=== PATIENT | male | born 1960 | race American Indian/Alaskan Native ===

== ENCOUNTER 2018-04-04 01:20 | Emergency (ER) | payer OTHER ==
--- NOTE | 2018-04-04 02:13 | XRay Report ---
FINAL REPORT PROCEDURE: XR CHEST 1V AP TECHNIQUE: Chest radiograph anteroposterior view. CPT 71745 HISTORY: Central Line Placement COMPARISON: No prior studies are available for comparison. FINDINGS: Heart: The heart is enlarged Mediastinum/Vessels: Normal. Lungs/Pleural space: There are right perihilar infiltrates. There are small pleural effusions. There is no pneumothorax.. Bony thorax: No acute osseous abnormality. Life support devices: Endotracheal tube is in the mid trachea. There is a left-sided central venous c atheter in the left internal jugular vein.. IMPRESSION: The heart is enlarged There are right perihilar infiltrates. There are small pleural effusions. There is no pneumothorax.. Endotracheal tube is in the mid trachea. There is a left-sided central venous catheter in the left in ternal jugular vein.. .
[2018-04-04] MEDS ORDERED: SUBLIMAZE IV PRN ×2 (02:16→02:38)
[2018-04-04] MEDS ORDERED: NACL 0.9% 500 ML IV PRN (02:16)
[2018-04-04] MEDS ORDERED: ARTIFICIAL TEARS OPHTH OINT OU PRN (02:16)
[2018-04-04] MEDS ORDERED: VASELINE LIP THERAPY TP PRN (02:16)
[2018-04-04] MEDS ORDERED: NACL 0.9% 1000 ML 1,000 ML IV ONE ×2 (02:19→03:27)
[2018-04-04] MEDS ORDERED: ZOSYN/NS 4.5GM/100ML 4.5 GM/100 ML VIAL IV ONE (02:21)
[2018-04-04] MEDS ORDERED: fentaNYL DRIP Premix 2,000 MCG/100 ML BAG IV SCH ×2 (03:00)
[2018-04-04] MEDS ORDERED: LEVOPHED DRIP 4 MG/NS 250 ML 4 MG/250 ML BAG IV SCH (03:00)
[2018-04-04 03:06] LABS: Hematocrit 44.5 % (35.5-45.6); Hemoglobin 14.4 gm/dl (11.8-15.2); Mean Corpuscular HGB Conc 33 % (32-34); Mean Corpuscular Volume 85 fl (84-94); Platelet Count 172 K/mm3 (140-440); Red Blood Count 5.26 M/mm3 (3.65-5.03)
[2018-04-04 03:15] LABS: INR 1.04 (0.87-1.13); Partial Thromboplastin Time 24.6 Sec. (24.2-36.6)
--- NOTE | 2018-04-04 03:22 | Emergency Department Report ---
ED General Adult HPI - General Chief complaint: Cardiac Arrest/CPR Stated complaint: CARDIAC ARREST Time Seen by Provider: 04/04/18 02:11 Source: EMS (ems notes not available at time of chart dictation. Verbal report received from EMS) Mode of arrival: Stretcher Limitations: No Limitations - History of Present Illness Initial comments: This is a 57-year-old gentleman not known to this provider previously. The patient is brought to the hospital by EMS as an out of hospital cardiac arrest. As per verbal report from EMS, the patient has a history of obesity, and diabetes. The patient apparently had a cardiac arrest during sexual activity. This specific details are not currently known. EMS estimates patient was pulseless initially for 15 minutes, and then regained pulses, for around 15 minutes. In the field, the patient was intubated, and started on an epinephrine drip. Upon arrival to the ER, patient is pulseless, pupils pinpoint and do not react to light, and he is receiving aggressive chest compressions. Patient received standard ACLS interventions and therapies. Around 5-7 minutes into his emergency room resuscitation, patient regained pulses. The patient is still, comatose. After pulses were obtained, video laryngoscopy performed with a Rancho 4 curved blade, which confirmed appropriate endotracheal tube placement. Hemodynamically unstable, dependent on epinephrine, and therefore an emergent right-sided femoral nonsterile crashed central line is attempted using ultrasound guidance. The femoral vein was cannulated, however, the line could not be passed secondary to significant adipose tissue and the patient's thighs. Thus, the right femoral attempt was aborted, and direct pressure was held in the right femoral region. The patient is now receiving epinephrine through a peripheral line, and has an elevated blood pressure. Therefore, the patient is emergently, and administratively consented by myself for emergent sterile central line, for administration of vasopressor medications. A left-sided central line was placed into the left internal jugular vein, ultrasound guidance, with one attempt, with no obvious complications. The patient tolerated this procedure well. Postprocedure, bedside ultrasonography confirmed placement of the central line tube in the venous lumen, and x-ray also confirmed appropriate placement without pneumothorax. X-ray did confirm no pneumothorax, and a small infiltrate was noted. This is most likely an aspiration pneumonia, pneumonitis. Patiently ventilated on a lung protective strategy, at 6-8 cc per kilogram of ideal body weight. This hospital does not have a hypothermia protocol or mechanism in place. Given leukocytosis, hemodynamic instability, patient will be covered empirically with Zosyn, although I doubt that the patient is acutely bacteremic. He modynamic instability, leukocytosis likely secondary to recent cardiac arrest. Screening laboratory studies have been requested. Noncontrast CT scan of the brain has been ordered and results are pending. EKG reviewed and is nonspecific. Discussed with cardiology, Dr. Sparrow, and their group will follow in consultation. Currently, EKG and clinical presentation does not support emergent cardiac catheterization. We are currently waiting for family, friends to present for additional information. A page has been placed out to the critical care physician to arrange placement into the intensive care unit. -: Sudden Quality: other Consistency: other Improves with: other Worsens with: other Associated Symptoms: other - Related Data Allergies Allergy/AdvReac Type Severity Reaction Status Date / Time No Known Allergies Allergy Verified 04/04/18 02:24 ED Review of Systems ROS: Stated complaint: CARDIAC ARREST Other details as noted in HPI Comment: Unobtainable due to pts medical conditions ED Past Medical Hx - Social History Smoking Status: Unknown if ever smoked ED Physical Exam - General Limitations: No Limitations, Altered Mental Status General appearance: obtunded - Head Head exam: Present: atraumatic, normocephalic - Eye Eye exam: Absent: normal appearance (pupils fixed, pinpoint, do not react to light) - ENT ENT exam: Present: normal orophraynx, mucous membranes moist, normal external ear exam, other (endotracheal tube noted in the oropharynx) - Neck Neck exam: Present: normal inspection. Absent: tenderness, meningismus - Respiratory Respiratory exam: Present: rhonchi. Absent: wheezes - Cardiovascular Cardiovascular Exam: Present: regular rate, normal rhythm, normal heart sounds. Absent: bradycardia, tachycardia, irregular rhythm, systolic murmur, diastolic murmur, rubs, gallop - GI/Abdominal GI/Abdominal exam: Present: soft. Absent: distended, tenderness, guarding, rebound, rigid, pulsatile mass - Rectal Rectal exam: Present: normal inspection, normal rectal tone, heme (-) stool. Absent: bloody stool - exam: Present: normal inspection External exam: Present: normal external exam - Extremities Exam Extremities exam: Present: normal inspection, other (2+ pulses noted in the bilateral upper, lower extremities. Compartments soft. No long bony tenderness. The pelvis is stable.). Absent: pedal edema, calf tenderness - Back Exam Back exam: Present: normal inspection. Absent: tenderness, CVA tenderness (R), paraspinal tenderness, vertebral tenderness - Neurological Exam Neurological exam: Present: altered, other (intubated, GCS of 3) - Psychiatric Psychiatric exam: Present: normal affect, normal mood - Skin Skin exam: Present: warm, dry, intact, normal color. Absent: rash ED Course Vital Signs 04/04/18 04/04/18 04/04/18 01:24 01:30 01:40 Temperature Pulse Rate 143 H 119 H 83 Respiratory 19 16 Rate Respiratory Rate [Post- Procedure] Blood Pressure Blood Pressure [Post-Procedure ] Blood Pressure 226/53 [Right] O2 Sat by Pulse 99 98 Oximetry O2 Sat by Pulse Oximetry [Post -Procedure] 04/04/18 04/04/18 04/04/18 01:45 01:51 01:53 Temperature Pulse Rate 79 66 Respiratory Rate Respiratory 18 Rate [Post- Procedure] Blood Pressure 144/66 Blood Pressure 140/56 [Post-Procedure ] Blood Pressure 140/56 [Right] O2 Sat by Pulse 98 98 Oximetry O2 Sat by Pulse 98 Oximetry [Post -Procedure] 04/04/18 04/04/18 04/04/18 02:00 02:15 02:30 Temperature Pulse Rate 60 Respiratory 18 Rate Respiratory Rate [Post- Procedure] Blood Pressure 140/56 100/51 104/55 Blood Pressure [Post-Procedure ] Blood Pressure [Right] O2 Sat by Pulse 98 99 97 Oximetry O2 Sat by Pulse Oximetry [Post -Procedure] 04/04/18 04/04/18 04/04/18 02:46 03:00 03:15 Temperature 98.8 F Pulse Rate 58 L 43 L 77 Respiratory 18 18 18 Rate Respiratory Rate [Post- Procedure] Blood Pressure 104/55 95/53 169/93 Blood Pressure [Post-Procedure ] Blood Pressure [Right] O2 Sat by Pulse 99 96 99 Oximetry O2 Sat by Pulse Oximetry [Post -Procedure] 04/04/18 04/04/18 03:21 03:31 Temperature Pulse Rate 61 Respiratory 20 Rate Respiratory Rate [Post- Procedure] Blood Pressure 141/83 Blood Pressure [Post-Procedure ] Blood Pressure [Right] O2 Sat by Pulse 97 95 Oximetry O2 Sat by Pulse Oximetry [Post -Procedure] - Reevaluation(s) Reevaluation #1: 04/04/18 03:28 Discussed with critical care physician, Dr. Owusu. Agrees with management plan. Discussed with family. Reevaluation #2: 04/04/18 04:54 CT scan of the brain shows hematoma in the left hemisphere of the cerebellum, 2.7 x 4.4 cm. Likely hemorrhagic transformation of infarct, or a vascular malformation. Subarachnoid hemorrhage is also noted. Blood was noted in the fourth ventricle, third ventricle. Cerebellar tonsils not defined. Possibility of cerebellar tonsillar herniation is considered. May be secondary ischemic infarct in the tono. Patient's had a bed will be elevated. He will be loaded with Keppra. He will be loaded with hypertonic saline. We'll hyperventilates to a goal PaCO2 of 30- 35 mmHg. This hospital does not have a hypothermia protocol, does not have neurosurgery, neurology, or neurology critical care. The patient has an emergent medical condition at this time, which cannot be definitively managed at this hospital because of lack of the aforementioned resources. Case is presented to neurology critical care, and neurosurgery at [facility], Shena Ramirez ( Shaquille, unsure of spelling) and Dr Oquendo, who has accepted the patient as a transfer. Elevated troponin reviewed and appreciated, likely secondary to cardiac arrest, and acute intracranial hemorrhage. Not a candidate for anticoagulation, thr ombolysis or aspirin at this time because of presence of intracranial bleed. - Procedure Description Procedures done: Video laryngoscopy performed with a curved Rancho blade, confirms placement of 8.0 endotracheal tube, placed by EMS personnel. - Central Line Placement Left IJ Consent Obtained: emergent situation Time Out Performed: Yes Patient Placed on Monitor/Pulse Ox: Yes Prep: mask, gown Central Line Prep: Povidone-Iodine 1%, Chlorhexidine scrub, sterile drapes applied Ultrasound Used for Placement: Yes Central Line Lumen Inserted: triple Bloods Obtained for Lab: No Central Line Position: good blood return, all ports aspirated, flus, sutured in place with 2-0 Dressing Applied: Tegaderm Post Procedure X-Ray: tip of catheter in good p Patient Tolerated Procedure: well Complications: none ED Medical Decision Making - Lab Data Result diagrams: 04/04/18 02:35 02/15/19 02:35 Vital Signs 04/04/18 04/04/18 04/04/18 01:40 01:45 01:53 Pulse Rate 83 79 66 Blood Pressure 144/66 Blood Pressure 226/53 140/56 [Right] O2 Sat by Pulse 98 100 98 Oximetry 04/04/18 03:21 Pulse Rate Blood Pressure Blood Pressure [Right] O2 Sat by Pulse 97 Oximetry Lab Results 04/04/18 04/04/18 04/04/18 Range/Units 02:35 02:35 02:35 WBC 17.2 H (4.5-11.0) K/mm3 RBC 5.26 H (3.65-5.03) M/mm3 Hgb 14.4 (11.8-15.2) gm/dl Hct 44.5 (35.5-45.6) % MCV 85 (84-94) fl MCH 28 (28-32) pg MCHC 33 (32-34) % RDW 16.0 H (13.2-15.2) % Plt Count 172 (140-440) K/mm3 PT 14.2 (12.2-14.9) Sec. INR 1.04 (0.87-1.13) APTT 24.6 (24.2-36.6) Sec. POC ABG pH (7.35-7.45) POC ABG pCO2 (35-45) POC ABG pO2 (80-105) POC ABG HCO3 POC ABG Total CO2 POC ABG O2 Sat POC ABG Base Excess FiO2 % Blood Type O POSITIVE 04/04/18 Range/Units 03:14 WBC (4.5-11.0) K/mm3 RBC (3.65-5.03) M/mm3 Hgb (11.8-15.2) gm/dl Hct (35.5-45.6) % MCV (84-94) fl MCH (28-32) pg MCHC (32-34) % RDW (13.2-15.2) % Plt Count (140-440) K/mm3 PT (12.2-14.9) Sec. INR (0.87-1.13) APTT (24.2-36.6) Sec. POC ABG pH 7.299 L (7.35-7.45) POC ABG pCO2 63.1 H (35-45) POC ABG pO2 443 H (80-105) POC ABG HCO3 31.0 POC ABG Total CO2 33 POC ABG O2 Sat 100 POC ABG Base Excess 5 FiO2 100 % Blood Type - EKG Data -: EKG Interpreted by Ri - EKG Data When compared to previous EKG there are: previous EKG unavailable 04/04/18 03:25 Cardiac, 47 bpm, borderline leftward axis, QTC within normal limits, atrial enlargement, motion artifact, nonspecific ST abnormality, borderline prolonged TX interval, abnormal EKG, not consistent with ST elevation myocardial infarction. - Radiology Data Radiology results: report reviewed, image reviewed Print Report Referring Physician: JAYMIE LEIVA Patient Name: TANGELA INFANTE Date of : 1960 Sex: Male Report Date: 2018-04-04 Report Status: Finalized Findings [facility] [address] [place] [address] XRay Report Signed Patient: TANGELA INFANTE MR#: [id number] : 1960 Acct:[id number] Age/Sex: 57 / M ADM Date: 04/04/18 Loc: ED Attending Dr: Ordering Physician: JAYMIE LEIVA MD Date of Service: 04/04/18 Procedure(s): XR chest 1V ap Accession Number(s): [id number] cc: JAYMIE LEIVA MD Fluoro Time In Minutes: FINAL REPORT PROCEDURE: XR CHEST 1V AP TECHNIQUE: Chest radiograph anteroposterior view. CPT 61871 HISTORY: Central Line Placement COMPARISON: No prior studies are available for comparison. FINDINGS: Heart: The heart is enlarged Mediastinum/Vessels: Normal. Lungs/Pleural space: There are right perihilar infiltrates. There are small pleural effusions. There is no pneumothorax.. Bony thorax: No acute osseous abnormality. Life support devices: Endotracheal tube is in the mid trachea. There is a left-sided central venous catheter in the left internal jugular vein.. IMPRESSION: The heart is enlarged There are right perihilar infiltrates. There are small pleural effusions. There is no pneumothorax.. Endotracheal tube is in the mid trachea. There is a left-sided central venous catheter in the left internal jugular vein.. . Transcribed By: CO Dictated By: JEFFY MCGUIRE MD Electronically Authenticated By: JEFFY MCGUIRE MD Signed Date/Time: 04/04/18 0213 Critical Care Time: Yes Critical care time in (mins) excluding proc time.: 120 Critical care attestation.: If time is entered above; I have spent that time in minutes in the direct care of this critically ill patient, excluding procedure time. ED Disposition Clinical Impression: Intracranial hemorrhage, Cardiac arrest, Acute renal insufficiency Disposition: DC/TX-02 [id number]-TRM GEN HOSP IP Is pt being admited?: No Does the pt Need Aspirin: No Condition: Critical Referrals: ELI GIBBS MD [Primary Care Provider] - 3-5 Days
[2018-04-04 03:25] LABS: Albumin 3.5 g/dL (3.9-5); Calcium 8.6 mg/dL (8.4-10.2)
[2018-04-04] MEDS ORDERED: KEPPRA 1,000 MG/NS 0.75% 100ML 1,000 MG/100 ML BAG IV ONE (04:40)
[2018-04-04] MEDS ORDERED: NACL 3% 300 ML IV ONE (04:45)
[2018-04-04] MEDS ORDERED: OSMITROL 20% IV ONE (04:45)
[2018-04-04 04:51] LABS: Chol/HDL Ratio 2.61 %
--- NOTE | 2018-04-04 04:51 | Cat Scan Report ---
FINAL REPORT PROCEDURE: CT HEAD/BRAIN WO CON TECHNIQUE: Computerized tomography of the head was performed without contrast material. HISTORY: ams cardiac arrest COMPARISON: No prior studies are available for comparison. FINDINGS: There is a hematoma in the left hemisphere of the cerebellum which measures 2.7 x 4.4 centimeters. Th is could be hemorrhagic transformation of infarct, or hemorrhage associated with vascular malformatio n or tumor. There is subarachnoid blood in the cortical sulci of the cerebellar hemispheres. There is blood in the 4th ventricle, the 3rd ventricle and the occipital horns of the lateral ventric les greater on the left. There is subarachnoid blood in the basilar cisterns. Cerebellar tonsils are not defined. There is a f tabby meant of the basilar cisterns. Possibility of cerebellar tonsillar herniation is considered. There low-density in the tono which could be due to ischemic infarction. There is dilatation of the lateral ventricles which could be due to obstructive hydrocephalus. The bony calvarium is intact. There is fluid in the maxillary sinuses. IMPRESSION: There is a hematoma in the left hemisphere of the cerebellum which measures 2.7 x 4.4 centimeters. Th is could be hemorrhagic transformation of infarct, or hemorrhage associated with vascular malformatio n or tumor. There is subarachnoid blood in the cortical sulci of the cerebellar hemispheres. There is intraventricular blood in the 4th ventricle, the 3rd ventricle and the occipital horns of th e lateral ventricles greater on the left. Cerebellar tonsils are not defined. There is a face meant of the basilar cisterns. Possibility of cer ebellar tonsillar herniation is considered. There low-density in the tono which could be due to ischemic infarction. There is dilatation of the lateral ventricles which could be due to obstructive hydrocephalus. Dr. Delgado was notified by telephone at 3:43 a.m. central time.
[2018-04-04 05:32] VITALS: BP 179/106
== END 2018-04-04 05:50 | disposition short-term general hospital (02) ==
LOC: ED 01:20
DX: I46.9 Cardiac arrest, cause unspecified (principal); I62.9 Nontraumatic intracranial hemorrhage, unspecified; N28.9 Disorder of kidney and ureter, unspecified; E11.9 Type 2 diabetes mellitus without complications; E66.9 Obesity, unspecified; Z79.899 Other long term (current) drug therapy
CPT/HCPCS: 36415; 36556; 51702; 70450; 71045; 80053; 80061; 82140; 82550; 82803; 83735; 84484; 85027; 85610; 85730; 86850; 86900; 86901; 87040; 92950; 93005; 93010; 96365; 96366; 96368; 99291; 99292; G0480; J2543; J7030; 80320; 94002